=== PATIENT | male | born 1970 | race Caucasian/White ===

== ENCOUNTER 2019-10-17 10:48 | Day surgery (SDC) | payer OTHER ==
[2019-10-16 10:45] VITALS: BMI 30.4
[~2019-10-17 10:48] MED LIST: LACTATED RINGERS 1,000 ML IV SCH
[2019-10-17 11:12] VITALS: RESP 16; TEMP 97.5
[2019-10-17] MEDS ORDERED: PROPOFOL 10 MG/ML 20 ML VIAL IV ONE (12:30)
--- NOTE | 2019-10-17 13:15 | P.PCN ---
Date of Procedure: 10/17/19 Description of Procedure: Brief history: Patient is a pleasant 48-year-old male presenting for outpatient EGD and colonoscopy for evaluation of dysphagia and change in bowel habits. Patient reports intermittent esophageal dysphagia. This started on omeprazole therapy reports improvement in his symptoms. Patient also reports episodes of constipation treated with qwjo-ukn-atdbpuq stool softeners and magnesium citrate. No prior endoscopic evaluation. No first-degree family members with colon cancer. Procedure performed: Esophagogastroduodenoscopy with biopsy Colonoscopy with polypectomy Estimated blood loss: Minimal. Preoperative diagnosis: Esophageal dysphagia, dysphagia, change in bowel habits, no prior endoscopy [place] [facility] [place] After informed consent was obtained from the patient was brought into the endoscopy unit and IV sedation was administered by anesthesia under continuous monitoring. Initially upper endoscopy was done. The Olympus GF 190 video endoscope was inserted into the mouth and esophagus intubated without any difficulty and was gradually advanced into the stomach and duodenum and carefully examined. The bulb and second part of the duodenum appeared normal, with biopsies taken. The scope was then withdrawn into the stomach adequately insufflated with air and upon careful examination the antrum and body, cardia and fundus appeared normal, except for some mild scattered punctate erythema in the antrum and body suggestive of mild gastric biopsies taken. The scope was then withdrawn into the esophagus. The GE junction was located at 40 cm to the incisors, and biopsied. It appeared regular with no erythema erosions or ulcerations. Rest of the esophagus appeared normal, with mid esophageal biopsies in the setting of esophageal dysphagia. Patient tolerated the procedure well. At this time the patient continued to remain sedation. Initial digital rectal examination was normal. Olympus CF 190 video colonoscope was then inserted into the rectum and gradually advanced to the cecum without any difficulty. Careful examination was performed as the scope was gradually being withdrawn. The prep was excellent. The cecum, ascending colon, transverse colon, descending colon, sigmoid colon and rectum appeared normal. Diminutive 1-2 mm polyps removed with cold forcep polypectomy, hyperplastic-appearing, from the descending colon, sigmoid colon and rectum. Retroflexion was performed in the rectum and no lesions were noted. Patient tolerated the procedure well. Impression: 1. Mild gastritis. Biopsies of the duodenum, antrum body, GE junction and midesophagus. 2. Normal-appearing colon from rectum to cecum. 3 diminutive polyps removed from the rectum, sigmoid colon and descending colon with cold forcep polypectomy. Recommendations: Findings of this examination were discussed with the patient as well as his fami ly. Okay to resume diet. Contusion medications. Continue omeprazole therapy. Would recommend repeat colonoscopy in 7 pending pathology from polypectomies.
[2019-10-17 13:30] VITALS: BP 113/75; PULSE 81
== END 2019-10-17 13:43 | disposition home or self-care (01) ==
LOC: ORWHC2ENDO 10:48
PROVIDERS: ATTEND Internal Medicine
DX: K59.00 Constipation, unspecified (principal); D12.8 Benign neoplasm of rectum; K63.5 Polyp of colon; K29.50 Unspecified chronic gastritis without bleeding; R13.14 Dysphagia, pharyngoesophageal phase; Z79.891 Long term (current) use of opiate analgesic; Z79.899 Other long term (current) drug therapy; Z90.89 Acquired absence of other organs
CPT/HCPCS: 88305; 45380; 43239; J2704

== ENCOUNTER → 2020-04-08 | Outpatient (CLI) | payer OTHER ==
--- NOTE | 2020-04-09 09:05 | XR ---
EXAMINATION TYPE: XR chest 2V DATE OF EXAM: 04/08/2020 COMPARISON: NONE HISTORY: Chest pain TECHNIQUE: Frontal and lateral views of the chest are obtained. FINDINGS: There is no focal air space opacity. No evidence for pneumothorax. No pleural effusion. The cardiac silhouette size is within normal limits. The osseous structures are grossly intact. IMPRESSION: 1. No acute cardiopulmonary process.
--- NOTE | 2020-04-09 09:12 | XR ---
EXAMINATION TYPE: XR knee complete RT DATE OF EXAM: 04/08/2020 CLINICAL HISTORY: pain TECHNIQUE: Three views of the right knee are obtained. COMPARISON: None. FINDINGS: There is no acute fracture/dislocation. The tri-compartment joint spaces appear moderatel y narrowed. The overlying soft tissue appears unremarkable. IMPRESSION: There is no acute fracture or dislocation.ICD 10 NO FRACTURE, INITIAL EVALUATION
== END | disposition home or self-care (01) ==
LOC: RADXRMAIN 15:40
PROVIDERS: ATTEND Family Medicine
DX: R05 Cough (principal); R06.2 Wheezing; S89.91XA Unspecified injury of right lower leg, initial encounter
CPT/HCPCS: 71046

== ENCOUNTER 2020-06-11 18:15 | Emergency (ER) | payer OTHER ==
[2020-06-11 18:20] VITALS: BP 147/82; PULSE 89; RESP 18; TEMP 98.3
--- NOTE | 2020-06-11 18:52 | ED ---
ENT HPI - General Chief complaint: Dental/Oral Stated complaint: teeth pulled/wont stop bleeding Time Seen by Provider: 06/11/20 18:35 Source: patient, RN notes reviewed Mode of arrival: ambulatory Limitations: no limitations - History of Present Illness Initial comments: 49-year-old male presents emergency department with oral bleeding. He notes that today around 3:00 he had the entire upper rolled his teeth removed by his dentist in [place]. He notes that they gave him gauze but he ran out and he was still having some slow bleeding. He wanted come emergency department to get checked out just make sure it wasn't significant bleeding. He was in no apparent distress or pain while sitting up in bed during exam and interview. He denied chest pain shortness breath headache nausea vomiting diarrhea constipation fever fatigue chills. - Related Data Home Medications Medication Instructions Recorded Confirmed Gabapentin [Neurontin] 600 mg PO HS 10/16/19 10/17/19 Hydrocodone/Acetaminophen [[place] 1 tab PO QAM PRN 10/16/19 10/17/19 10-325] Omeprazole [PriLOSEC] 40 mg PO DAILY 10/16/19 10/17/19 Xanax (Unk Dose) 1 tab PO HS 10/16/19 10/17/19 Allergies Allergy/AdvReac Type Severity Reaction Status Date / Time No Known Allergies Allergy Verified 06/11/20 18:20 Review of Systems ROS Statement: Those systems with pertinent positive or pertinent negative responses have been documented in the HPI. ROS Other: All systems not noted in ROS Statement are negative. Past Medical History Additional Past Medical History / Comment(s): hard to swallow,SOB,hx u lcer,bulging disc to back-chronic pain History of Any Multi-Drug Resistant Organisms: None Reported Past Surgical History: Tonsillectomy Past Anesthesia/Blood Transfusion Reactions: No Reported Reaction Smoking Status: Current every day smoker - Past Family History Mother Family Medical History: Cancer Additional Family Medical History / Comment(s): breast CA,. pt's 2-Aunts had rectal CA General Exam Limitations: no limitations General appearance: alert, in no apparent distress Head exam: Present: atraumatic, normocephalic, normal inspection Eye exam: Present: normal appearance, PERRL, EOMI. Absent: scleral icterus, conjunctival injection, periorbital swelling ENT exam: Present: normal exam, mucous membranes moist, other (All teeth extracted on the upper row, very minimal bleeding with slow oozing on the upper left side.) Neck exam: Present: normal inspection. Absent: tenderness, meningismus, lymphadenopathy Respiratory exam: Present: normal lung sounds bilaterally. Absent: respiratory distress, wheezes, rales, rhonchi, stridor Cardiovascular Exam: Present: regular rate, normal rhythm, normal heart sounds. Absent: systolic murmur, diastolic murmur, rubs, gallop, clicks GI/Abdominal exam: Present: soft, normal bowel sounds. Absent: distended, tenderness, guarding, rebound, rigid Extremities exam: Present: normal inspection, full ROM, normal capillary refill. Absent: tenderness, pedal edema, joint swelling, calf tenderness Neurological exam: Present: alert, oriented X3, CN II-XII intact Psychiatric exam: Present: normal affect, normal mood Skin exam: Present: warm, dry, intact, normal color. Absent: rash Course Vital Signs 06/11/20 18:17 Temperature 98.3 F Pulse Rate 89 Respiratory 18 Rate Blood Pressure 147/82 O2 Sat by Pulse 97 Oximetry Medical Decision Making - Medical Decision Making 49-year-old male status post until extraction of entire upper row teeth. Very minimal bleeding, packed with gauze, patient tolerated well. Patient informed to keep gauze packed without removing it for the next 30 minutes to an hour to allow proper clotting. Case discussed with Dr. Ruelas patient go home Disposition Clinical Impression: Oral bleeding Disposition: HOME SELF-CARE Condition: Stable Additional Instructions: Please return to the Emergency Department if symptoms worsen or any other concerns. Keep gauze packed for the next 30 minutes to an hour without removal to allow proper clotting time. Follow-up with dentist in the morning if it is still slightly oozing. Avoid any medications to thin the blood such as Motrin. Can take Tylenol for pain. Is patient prescribed a controlled substance at d/c from ED?: No Referrals: Katia Mendez MD [Primary Care Provider] - 1-2 days Time of Disposition: 18:52
== END 2020-06-11 18:56 | disposition home or self-care (01) ==
LOC: EC 18:15
DX: R04.1 Hemorrhage from throat (principal); F17.200 Nicotine dependence, unspecified, uncomplicated
CPT/HCPCS: 99283

== ENCOUNTER → 2020-07-14 | Outpatient (CLI) | payer OTHER | LOC: CPPFTMAIN 07:36 | PROVIDERS: ATTEND Family Medicine | DX: J44.9 Chronic obstructive pulmonary disease, unspecified (principal); R94.2 Abnormal results of pulmonary function studies | CPT/HCPCS: 94060; 94726; 94729 ==

== ENCOUNTER → 2021-08-03 | Outpatient (CLI) | payer OTHER ==
--- NOTE | 2021-08-03 07:14 | MR ---
EXAMINATION TYPE: MR lumbar spine wo con DATE OF EXAM: 08/03/2021 COMPARISON: NONE HISTORY: Low back pain TECHNIQUE: Multiplanar, multisequence imaging of the lumbar spine is performed without IV contrast. FINDINGS: Sagittal images of the lumbar spine show vertebral body heights and alignment to appear sat isfactory. Multilevel disc desiccation L2-L3 through the L4-L5 levels. Meln-mj-tlqhcuhc disc space na rrowing L3-L4 level The conus medullaris is normal in position and signal ending at mid L1 level. T here is lipoma of the filum terminale running to mid L3 level sagittal image 7. The bone marrow signa l intensity is within normal limits. Mild multilevel anterior spurring. Axial images at T11-T12 levels show left paracentral disc protrusion effacing the anterolateral theca l sac. Axial images at T12-L1 and L1-L2 levels appear within normal limits. Axial images at L2-L3 level some wapa-qb-sfxgjayx broad disc, bilateral neural foramina are patent. S braxton canal is preserved. Axial images at L3-L4 level show poeg-ty-gebopeau broad disc bulge minimally effacing the anterior th ecal sac and mild facet arthropathy bilaterally. There is mild bilateral anterior inferior neural for aminal narrowing. Axial images at L4-5 show mild/moderate facet arthropathy bilaterally. Mild broad disc bulge. Mild bi lateral neural foraminal narrowing. Axial images at L5-S1 level show mild facet arthropathy bilaterally. No suspicious retroperitoneal findings. IMPRESSION: Mild multilevel degenerative changes in the lumbar spine as detailed above.
== END | disposition home or self-care (01) ==
LOC: RADMRIMAIN 05:43
PROVIDERS: ATTEND Internal Medicine
DX: M51.36 Other intervertebral disc degeneration, lumbar region (principal)
CPT/HCPCS: 72148

== ENCOUNTER → 2021-08-16 | Outpatient (CLI) | payer OTHER ==
[2021-08-16 10:29] VITALS: BP 128/90; PULSE 77; RESP 18; TEMP 98.1
--- NOTE | 2021-08-16 10:34 | P.PAINPG ---
PQRS Measure Charge Sheet Comment: HISTORY OF PRESENT ILLNESS: 50 yr old male as a referral from Dr. Ratliff for severe and chronic mid to lower lumbar spine on & off x 15 yrs, sharp ever since he fell off of a ladder for an evaluation. States pain level is 8/10 in intensity, constant & sharp in the mid to lower aspects of his lumbar spine with radiation of pain towards the BLEs. Pain is provoked with bending, lifting and twisting. Pain is palliated with medications (Neurontin, topicals), repositioning, laying supine. He has not tried PT or chiropractic treatments. He is not interested in interventional pain managment options at this time. PMH: GERD PSH: EGD/ Colonoscopy, Tonsillectomy SH: Current tobacco user. +Cannabis use. No ETOH abuse. FH: Mother - Breast CA. Aunt(s)- Rectal CA. All: NKDA Meds: See list REVIEW OF ORGAN SYSTEMS: CONSTITUTIONAL: No fevers or chills. No recent weight loss. NEUROLOGICAL: + numbness and tingling along the distal extremities. No seizure disorders or headaches. MUSCULOSKELETAL: + pain PSYCHIATRIC: Denies current depression or suicidal thoughts. Physical Examinations : Constitutional : Cooperative , not in acute distress . Neurologic : Cranial nerve II to XII intact. No focal neurological deficits. Psychiatric : alert & oriented x 3. Matching mood & appropriate affect. Judgment & insight intact. Musculoskeletal : Cervical Spine Motor strength in the deltoid and biceps: Normal right side. Normal Left side Motor strength biceps and the wrist extensors: Normal right side . Normal left side Motor strength in the triceps muscle: Normal right side. Normal left side Deep tendon reflexes: Normal at the biceps. Normal at Brachioradialis. Normal at triceps Vertebral body tenderness to deep palpation over Cervical facet loading test: positive bilaterally Spurling test: positive bilaterally Neck distraction test: positive bilaterally Justyna sign: positive bilaterally Lumbar spine Motor strength lower extremities ,thigh and legs 5/5 Right side , 5/5 Left side Deep tendon reflexes : Normal Knee Jerk. Normal Ankle Jerk Vertebral body tenderness over L2, L3 L side Lumbar facet Loading Test: positive Right / positive Left Range of motion of the lumbar spine Flexion 30 degrees, extension 10 degrees Straight Leg Raise test: Left/ Right positive at degree Lakesha test: positive right / positive left. Severe tenderness over the Sacroiliac joint on the Right / Left sides Gaenslen test: positive bilaterally Seated flexion test: positive bilaterally. Sacral spine : Severe tenderness over the Sacroiliac joint: right side / left side Range of motion: Flexion of the lumbar spine <60 degrees Range of motion: Extension of the lumbar spine <20 degrees Gaenslen's Test positive Bart's Test positive Lakesha test: positive right side / left side Thigh Thrust Test Sacral Thrust Test Imaging: Reviewed Assessment/ Plan : Lumbar spondylosis Recommendation of PT of lumbar spine, 3 times per week x 6 weeks but pt was disinterested at this time. Pt only wanted medication pain management. All questions answered. I have spent greater than 30 minutes on patient care today. Dr Blackwood was available by phone for the evaluation of this patient. The time was used to review the medical records including relevant urine studies and Prescription history (MAPs), review of the available imaging, evaluation and examination of the patient, coordination of care with the medical staff and if applicable referring physicians, as well as creation of the medical record - Pain Location Lower Medial Back Non-Pharmacological Interventions: Heat, Position/Reposition Pharmacological Interventions: Medication, Scheduled Medication Home Medications: Ambulatory Orders Gabapentin [Neurontin] 600 mg PO HS 10/16/19 Hydrocodone/Acetaminophen [[place] 10-325] 1 tab PO QAM PRN 10/16/19 Omeprazole [PriLOSEC] 40 mg PO DAILY 10/16/19 Xanax (Unk Dose) 1 tab PO HS 10/16/19 Controlled Substance Measures - Controlled Substance Measures Is patient prescribed a controlled substance at discharge?: No
== END ==
LOC: PNWHC3 09:52
PROVIDERS: ATTEND Specialist
DX: M47.816 Spondylosis without myelopathy or radiculopathy, lumbar region (principal); F17.200 Nicotine dependence, unspecified, uncomplicated; K21.9 Gastro-esophageal reflux disease without esophagitis; Z79.899 Other long term (current) drug therapy
CPT/HCPCS: 99211

== ENCOUNTER → 2022-03-02 | Outpatient (CLI) | payer OTHER ==
--- NOTE | 2022-03-02 16:16 | CTL ---
EXAMINATION TYPE: CT Low Dose Lung DATE OF EXAM ORDERED: 03/02/2022 HISTORY: Additional tobacco use. Lung cancer screening CT DLP: 130.[address] CTDI: 3.1 mGy Automated exposure control for dose reduction was used. SCREENING VISIT: Initial COMPARISON: None TECHNIQUE: Low dose computed tomography scan was performed through the chest at 1 mm thick sections a nd reconstructed images in the coronal plane at [address] DIAGNOSTIC QUALITY: Satisfactory FINDINGS: LUNG NODULES: None. LUNGS: COPD: Severity: None Fibrosis: Severity: None Lymph nodes: None Other findings: None RIGHT PLEURAL SPACE: Effusion: None Calcification: None Thickening: None Pneumothorax: None LEFT PLEURAL SPACE: Effusion: None Calcification: None Thickening: None Pneumothorax: None HEART: Heart Size: Normal Coronary calcification: None Pericardial effusion: None OTHER FINDINGS: Upper abdomen: Normal Bony thorax: Normal Supraclavicular region: Normal Other: Ascending thoracic aorta at the level the main pulmonary artery measures 3.4 cm. The main pul monary artery at the bifurcation measures 2.4 cm. IMPRESSION: 1. No suspicious changes for primary or metastatic neoplasm. FOLLOW UP CT CHEST RECOMMENDATION: Follow-up low-dose CT chest [address] LUNG RAD: 1
== END | disposition home or self-care (01) ==
LOC: RADCTMAIN 15:14
PROVIDERS: ATTEND Internal Medicine
DX: Z12.2 Encounter for screening for malignant neoplasm of respiratory organs (principal); F17.210 Nicotine dependence, cigarettes, uncomplicated
CPT/HCPCS: 71271

== ENCOUNTER → 2023-04-06 | Outpatient (CLI) | payer OTHER ==
--- NOTE | 2023-04-06 08:35 | CTL ---
EXAMINATION TYPE: CT Low Dose Lung DATE OF EXAM: 04/06/2023 6:32 AM CLINICAL INDICATION:Male, 52 years old with history of F17.210 tobacco dependence; nicotine dependenc e , history of tobacco use. COMPARISON: 03/02/2022. TECHNIQUE: Multiple axial non-contrast scans were obtained from approximately the lung apices through the upper abdomen. Coronal and sagittal reformatted images were obtained. Low dose technique was uti lized. CT DLP: 153.1 mGycm, Automated exposure control for dose reduction was used. CT Contrast: Contrast used: None Oral contrast used: None FINDINGS: ======== Lack of intravenous contrast and low dose technique limits the evaluation of the vascular and soft ti ssue structures. LUNGS: No evidence of pulmonary fibrosis. No evidence of focal consolidation, pneumothorax or pleural effusion. Centrilobular emphysema changes. Nodules: RUL: None. RML: None. RLL: None. HAMILTON: None. LLL: None. AIRWAY: Patent and unremarkable. HEART: Size within normal limits. MEDIASTINUM: No gross evidence of adenopathy. VASCULATURE: No aortic aneurysm. MUSCULOSKELETAL: Mild disc degeneration changes are present throughout the thoracolumbar spine. SOFT TISSUES/LYMPH NODES: Unremarkable. LOWER NECK: No significant findings. UPPER ABDOMEN: No significant findings. IMPRESSION: 1. No clinically significant pulmonary nodules. 2. Mild emphysema. CT LUNG RAD AND CT CHEST RECOMMENDATION: Lung-Rad 1 Negative: Continue annual screening with LDCT in 12 months. S Modifier (other clinically significant findings): None Recommend smoking cessation (if current smoker), or continuation of smoking cessation (if prior smoke r). Annual screening for lung cancer with low-dose computed tomography is recommended in adults ages 55 to 77 years who have a 30 pack-year smoking history and currently smoke or have quit within the pa st 15 years. Screening should be discontinued once a person has not smoked for 15 years or develops a health problem that substantially limits life expectancy or the ability or willingness to have curat ras lung surgery. Lung rads 2021 [email or web address]
== END | disposition home or self-care (01) ==
LOC: RADCTMAIN 06:07
PROVIDERS: ATTEND Internal Medicine
DX: Z12.2 Encounter for screening for malignant neoplasm of respiratory organs (principal); J43.2 Centrilobular emphysema; F17.210 Nicotine dependence, cigarettes, uncomplicated
CPT/HCPCS: 71271